=== PATIENT | female | born 1970 | race Caucasian/White ===

== ENCOUNTER 2017-02-26 07:58 | Emergency (ER) | payer MEDICAID ==
[~2017-02-26] VITALS: Ht 162.6 cm; Wt 115.3 kg
[~2017-02-26 07:58] MED LIST: ACID1TAB7 PO; AZIT250T PO; AZIT250T89 PO; CEFD300C37 PO; CEFU500T PO; HYDR-3241 PO; LEVO750T26 PO; MECL-76 PO; MORP30CP12 PO; ONDA4TAB13 SL; PRED10TA PO; TRAM50TA2 PO
[2017-02-26] MEDS ORDERED: PRED10TA PO (08:33)
[2017-02-26] MEDS ORDERED: SODIUM CHLORIDE 0.9% 1,000 ML IV ONE (08:38)
[2017-02-26] MEDS ORDERED: ACETAMINOPHEN 500 MG TABLET ONE (08:54)
[2017-02-26] MEDS ORDERED: MORPHINE SULFATE 4 MG/ML, 1ML ONE (08:54)
[2017-02-26] MEDS ORDERED: ONDANSETRON 2MG/ML, 2ML ONE (08:55)
[2017-02-26] MEDS ORDERED: SODIUM CHLORIDE 0.9% 1,000ML IVBOLUS ONE (09:00)
[2017-02-26] MEDS ORDERED: ONDANSETRON 2MG/ML, 2ML IVPush ONE (09:00)
[2017-02-26] MEDS ORDERED: MORPHINE SULFATE 4 MG/ML, 1ML IVPush PRN (09:00)
[2017-02-26] MEDS ORDERED: ACETAMINOPHEN 500 MG TABLET PO ONE (09:00)
[2017-02-26 09:13] LABS: BASOPHILS # (AUTO) 0.01 x10^3/uL (0-0.1); BASOPHILS % (AUTO) 0 % (0-1); EOSINOPHILS # (AUTO) 0.15 x10^3/uL (0-0.4); EOSINOPHILS % (AUTO) 2 % (1-7); LYMPHOCYTES # (AUTO) 0.73 x10^3/uL (1-3.4); LYMPHOCYTES % (AUTO) 9 % (22-44); MD NO; MEAN CORPUSCULAR HEMOGLOBIN 30.3 pg (27.0-34.8); MEAN CORPUSCULAR HGB CONC 33.6 g/dL (32.4-35.8); MEAN PLATELET VOLUME 7.1 fL (7.4-10.4); MONOCYTES # (AUTO) 0.43 x10^3/uL (0.2-0.8); MONOCYTES % (AUTO) 5 % (2-9); NEUTROPHILS # (AUTO) 6.86 x10^3/uL (1.8-6.8); NEUTROPHILS % (AUTO) 84 % (42-75); PLATELET COUNT 346 x10^3/uL (130-400); RED BLOOD COUNT 4.49 x10^6/uL (3.82-5.3)
[2017-02-26 09:21] LABS: ALBUMIN 3.2 g/dL (3.4-5.0); ANION GAP 8 mmol/L (5-15); CALCIUM 8.2 mg/dL (8.5-10.1); CHLORIDE 102 mmol/L (98-107)
[2017-02-26 09:24] LABS: ALANINE AMINOTRANSFERASE 28 U/L (12-78); ALKALINE PHOSPHATASE 89 U/L (45-117); BILIRUBIN,TOTAL 0.7 mg/dL (0.2-1.0); CREATININE 0.78 mg/dL (0.55-1.02)
[2017-02-26 10:01] LABS: MICROSCOPIC AUTO
[2017-02-26 10:06] LABS: CULTURE INDICATED? NO
[2017-02-26] MEDS ORDERED: OMNIPAQUE 350 MG/ML, 100ML BOTTLE ONE (11:16)
[2017-02-26 11:26] VITALS: BP 126/64
== END 2017-02-26 13:18 | disposition home or self-care (01) ==
LOC: ED 09:27
DX: M54.6 Pain in thoracic spine (principal); R50.9 Fever, unspecified; R11.10 Vomiting, unspecified; R10.9 Unspecified abdominal pain; M06.9 Rheumatoid arthritis, unspecified; I10 Essential (primary) hypertension; I25.2 Old myocardial infarction; Z87.891 Personal history of nicotine dependence
CPT/HCPCS: 36415; 71045; 74177; 80053; 81001; 83605; 83690; 84145; 85025; 87040; 93005; 96361; 96374; 96375; 99285; J2405; J7030; Q9967

== ENCOUNTER 2017-06-04 08:17 | Emergency (ER) | payer SELFPAY ==
[~2017-06-04] VITALS: Ht 162.6 cm; Wt 116.7 kg
[2017-06-04 08:18] VITALS: BP 155/87
[2017-06-04] MEDS ORDERED: OXYcodone/APAP 5/325MG TABLET ONE (08:47)
[2017-06-04] MEDS ORDERED: KETOROLAC 30 MG/1 ML ONE (08:47)
[2017-06-04] MEDS ORDERED: OXYcodone/APAP 5/325MG TABLET PO ONE (09:00)
[2017-06-04] MEDS ORDERED: KETOROLAC 30 MG/1 ML IM ONE (09:00)
== END 2017-06-04 09:33 | disposition home or self-care (01) ==
LOC: ED 09:00
DX: M25.561 Pain in right knee (principal); M06.9 Rheumatoid arthritis, unspecified; G89.29 Other chronic pain; I10 Essential (primary) hypertension
CPT/HCPCS: 96372; 99283; J1885

== ENCOUNTER 2018-03-15 11:42 | Inpatient (IN) | payer OTHER ==
[~2018-03-15] VITALS: Ht 162.6 cm; Wt 106.7 kg
[2018-03-15] MEDS ORDERED: IBUP-1623 PO (12:21)
[2018-03-15] MEDS ORDERED: HYDR-3240 PO (12:21)
--- NOTE | 2018-03-15 13:12 | NUR ---
ADDITIONAL ORDERS ADDED AT THIS TIME, PATIENT ON DELIVERY ARCHITECT PER ERP ORDER. AWAITING LABS.
--- NOTE | 2018-03-15 13:13 | NUR ---
VS UPDATED IN CHART, PATIENT TEARFUL, SITTING IN JUSTICE PERSAUD.
[2018-03-15] MEDS ORDERED: ASPIRIN 81 MG TABLET CHEW ONE (13:16)
--- NOTE | 2018-03-15 13:20 | NUR ---
EKG COMPLETED BY EMT.
[2018-03-15] MEDS ORDERED: ASPIRIN 81 MG TABLET CHEW PO ONE (13:30)
[2018-03-15 13:42] LABS: BASOPHILS # (AUTO) 0.04 x10^3/uL (0-0.1); BASOPHILS % (AUTO) 0 % (0-1); EOSINOPHILS # (AUTO) 0.09 x10^3/uL (0-0.4); EOSINOPHILS % (AUTO) 1 % (1-7); LYMPHOCYTES # (AUTO) 1.33 x10^3/uL (1-3.4); LYMPHOCYTES % (AUTO) 8 % (22-44); MD NO; MEAN CORPUSCULAR HEMOGLOBIN 30.2 pg (27.0-34.8); MEAN CORPUSCULAR HGB CONC 33.8 g/dL (32.4-35.8); MEAN CORPUSCULAR VOLUME 89.3 fL (80-100); MEAN PLATELET VOLUME 7.3 fL (7.4-10.4); MONOCYTES # (AUTO) 0.59 x10^3/uL (0.2-0.8); MONOCYTES % (AUTO) 4 % (2-9); NEUTROPHILS % (AUTO) 87 % (42-75); PLATELET COUNT 305 x10^3/uL (130-400); RED BLOOD COUNT 4.36 x10^6/uL (3.82-5.3); RED CELL DISTRIBUTION WIDTH 14.5 % (9.6-15.2)
[2018-03-15 13:45] LABS: ALBUMIN 2.9 g/dL (3.4-5.0); ANION GAP 9 mmol/L (5-15); CALCIUM 8.8 mg/dL (8.5-10.1); CHLORIDE 108 mmol/L (98-107); CREATININE 0.69 mg/dL (0.55-1.02)
[2018-03-15 13:49] LABS: TROPONIN I 0.035 ng/mL (0.000-0.045)
--- NOTE | 2018-03-15 14:13 | NUR ---
RESULTS BACK, CHART UP FOR RECHECK.
--- NOTE | 2018-03-15 14:31 | NUR ---
PER MD FLORIN TO SEE PATIENT TO DETERMINE IF PATIENT IS TO BE ADMITTED OR DC'D.
--- NOTE | 2018-03-15 14:34 | NUR ---
MD AT BEDSIDE, PATIENT TO BE ADMIT. AWAITING ORDER. PATIENT SITTING IN COMFORTABLY IN JUSTICE PERSAUD.
--- NOTE | 2018-03-15 15:10 | NUR ---
REPORT TO MARISOL SINGH RN. NEW ORDERS FOR BLOOD CULTURES AND ABX, LAB TO DRAW BLOOD CULTURES PRIOR TO ABX.
[2018-03-15] MEDS ORDERED: CEFTRIAXONE PMX 1GM/50ML 50 ML ONE (15:12)
--- NOTE | 2018-03-15 15:14 | NUR ---
TASK RN - LAB TO BEDSIDE FOR BC X 2. WILL HANG ABX AFTER.
[2018-03-15] MEDS ORDERED: AZITHROMYCIN 500 MG in SODIUM CHLORIDE 0.9% 250 ML IVPB ONE (15:30)
[2018-03-15] MEDS ORDERED: CEFTRIAXONE PMX 1GM/50ML 50 ML IVPB ONE (15:30)
[2018-03-15] MEDS ORDERED: SODIUM CHLORIDE FLUSH 10ML SYR IVF PRN (16:00)
--- NOTE | 2018-03-15 16:03 | NUR ---
1ST ABX COMPLETED, 2ND ABX ADMINISTERED. ADMIT ORDER IN, AWAITING BED ASSIGNMENT. PATIENT SITTING COMFORTABLY ON GURNEY PLAYING ON CELL PHONE.
--- NOTE | 2018-03-15 16:26 | NUR ---
LEVEL OF CARE CHANGED FROM MED/SURG TO MED/TELE, THROUGHPUT AWARE. VS UPDATED IN CHART, NADN. NO ADDITIONAL NEEDS AT THIS TIME.
[2018-03-15] MEDS ORDERED: ONDANSETRON ODT 4 MG PO PRN (16:30)
[2018-03-15] MEDS ORDERED: DOCUSATE 100 MG CAPSULE PO PRN (16:30)
[2018-03-15] MEDS ORDERED: BISACODYL 10 MG SUPP PR PRN (16:30)
[2018-03-15] MEDS ORDERED: ENALAPRILAT 1.25 MG/ML, 2ML IVPush PRN (16:30)
[2018-03-15] MEDS ORDERED: HYDROcodone/APAP 5/325 TABLET PO PRN (16:30)
[2018-03-15] MEDS ORDERED: ONDANSETRON 2MG/ML, 2ML IVPush PRN (16:30)
[2018-03-15] MEDS ORDERED: LABETALOL 5MG/ML, 20ML IVPush PRN (16:30)
[2018-03-15] MEDS ORDERED: ACETAMINOPHEN 325 MG TABLET PO PRN (16:30)
[2018-03-15] MEDS ORDERED: POLYETHYLENE GLYCOL 17 GM PACKET PO PRN (16:30)
--- NOTE | 2018-03-15 17:11 | NUR ---
REPORT TO MAC DAVENPORT. PATIENT TRANSFERRED/ADMITTED TO HOSPITAL BED UPSTAIRS, NADN.
[2018-03-15 17:18] LABS: TROPONIN I 0.037 ng/mL (0.000-0.045)
[2018-03-15 17:21] VITALS: BP 106/72
[2018-03-15] MEDS ORDERED: SODIUM CHLORIDE 0.9% 1,000 ML IV SCH (17:24)
[2018-03-15] MEDS: ENOXAPARIN 40 MG/0.4 ML SQ SCH (17:54)
[2018-03-15] MEDS: GUAIFENESIN/DM 200-20MG, 10ML UDC PO SCH (17:55)
[2018-03-15 18:36] VITALS: BP 113/72
[2018-03-15 19:43] LABS: TROPONIN I 0.041 ng/mL (0.000-0.045)
[2018-03-16] MEDS: GUAIFENESIN/DM 200-20MG, 10ML UDC PO SCH ×4 (00:06→18:16)
[2018-03-16 01:37] VITALS: BP 138/84
[2018-03-16 04:51] LABS: RAPID INFLUENZA A Negative (Negative)
[2018-03-16 04:53] LABS: RAPID INFLUENZA B POSITIVE (Negative)
[2018-03-16 05:44] LABS: ANION GAP 8 mmol/L (5-15); CALCIUM 8.1 mg/dL (8.5-10.1); CHLORIDE 110 mmol/L (98-107); CREATININE 0.69 mg/dL (0.55-1.02)
[2018-03-16 06:13] LABS: BASOPHILS # (AUTO) 0.01 x10^3/uL (0-0.1); BASOPHILS % (AUTO) 0 % (0-1); EOSINOPHILS # (AUTO) 0.17 x10^3/uL (0-0.4); EOSINOPHILS % (AUTO) 2 % (1-7); LYMPHOCYTES # (AUTO) 1.33 x10^3/uL (1-3.4); LYMPHOCYTES % (AUTO) 16 % (22-44); MD NO; MEAN CORPUSCULAR HEMOGLOBIN 30.5 pg (27.0-34.8); MEAN CORPUSCULAR HGB CONC 33.7 g/dL (32.4-35.8); MEAN CORPUSCULAR VOLUME 90.4 fL (80-100); MEAN PLATELET VOLUME 7.5 fL (7.4-10.4); MONOCYTES # (AUTO) 0.57 x10^3/uL (0.2-0.8); MONOCYTES % (AUTO) 7 % (2-9); NEUTROPHILS # (AUTO) 6.36 x10^3/uL (1.8-6.8); NEUTROPHILS % (AUTO) 75 % (42-75); PLATELET COUNT 283 x10^3/uL (130-400); RED BLOOD COUNT 3.91 x10^6/uL (3.82-5.3); RED CELL DISTRIBUTION WIDTH 14.6 % (9.6-15.2)
[2018-03-16 07:40] VITALS: BP 132/79
[2018-03-16 14:41] VITALS: BP 134/81
[2018-03-16] MEDS ORDERED: CEFTRIAXONE PMX 1GM/50ML 50 ML IV SCH (15:00)
[2018-03-16] MEDS ORDERED: AZITHROMYCIN 500 MG in SODIUM CHLORIDE 0.9% 250 ML IV SCH (16:00)
[2018-03-16] MEDS: ENOXAPARIN 40 MG/0.4 ML SQ SCH (18:16)
[2018-03-16 20:07] VITALS: BP 142/79
[2018-03-17 00:43] VITALS: BP 125/77
[2018-03-17] MEDS: GUAIFENESIN/DM 200-20MG, 10ML UDC PO SCH ×3 (00:48→13:18)
[2018-03-17 06:38] VITALS: BP 146/78
[2018-03-17 08:15] LABS: BASOPHILS # (AUTO) 0.02 x10^3/uL (0-0.1); BASOPHILS % (AUTO) 0 % (0-1); EOSINOPHILS # (AUTO) 0.18 x10^3/uL (0-0.4); EOSINOPHILS % (AUTO) 3 % (1-7); LYMPHOCYTES # (AUTO) 1.43 x10^3/uL (1-3.4); LYMPHOCYTES % (AUTO) 23 % (22-44); MD NO; MEAN CORPUSCULAR HEMOGLOBIN 29.4 pg (27.0-34.8); MEAN CORPUSCULAR HGB CONC 32.7 g/dL (32.4-35.8); MEAN PLATELET VOLUME 6.5 fL (7.4-10.4); MONOCYTES # (AUTO) 0.54 x10^3/uL (0.2-0.8); MONOCYTES % (AUTO) 9 % (2-9); NEUTROPHILS # (AUTO) 4.08 x10^3/uL (1.8-6.8); NEUTROPHILS % (AUTO) 65 % (42-75); PLATELET COUNT 383 x10^3/uL (130-400); RED BLOOD COUNT 4.15 x10^6/uL (3.82-5.3); RED CELL DISTRIBUTION WIDTH 14.4 % (9.6-15.2)
[2018-03-17 08:23] LABS: ALANINE AMINOTRANSFERASE 29 U/L (12-78); ALBUMIN 2.3 g/dL (3.4-5.0); ANION GAP 8 mmol/L (5-15); CALCIUM 8.1 mg/dL (8.5-10.1); CHLORIDE 108 mmol/L (98-107); CREATININE 0.55 mg/dL (0.55-1.02)
[2018-03-17 08:28] LABS: ALKALINE PHOSPHATASE 76 U/L (45-117); BILIRUBIN,TOTAL 0.5 mg/dL (0.2-1.0); TOTAL PROTEIN 6.5 g/dL (6.4-8.2); TROPONIN I 0.042 ng/mL (0.000-0.045)
[2018-03-17] MEDS: OSELTAMIVIR 75 MG CAPSULE PO SCH ×2 (08:45→08:46)
[2018-03-17] MEDS ORDERED: POTASSIUM CHLORIDE 20 MEQ TAB.ER.PRT PO ONE ×2 (09:00→11:00)
[2018-03-17] MEDS: SODIUM CHLORIDE 0.9% 500 ML IV SCH ×2 (09:10→13:00)
[2018-03-17] MEDS ORDERED: DOXY100T PO (12:07)
[2018-03-17] MEDS ORDERED: OSEL75CA PO (12:07)
[2018-03-17] MEDS ORDERED: CEFD300C37 PO (12:07)
[2018-03-17] MEDS ORDERED: GUAI400T66 PO (12:09)
[2018-03-17 12:57] VITALS: BP 140/82
[2018-03-17] MEDS ORDERED: CEFTRIAXONE PMX 1GM/50ML 50 ML IV SCH (13:00)
[2018-03-17] MEDS ORDERED: AZITHROMYCIN 500 MG TABLET PO ONE (13:00)
== END 2018-03-17 16:41 | disposition home or self-care (01) | DRG 194 ==
LOC: ED 12:40 → EDIP 15:46 → 5SO 17:17
PROVIDERS: ADMIT Hospitalist; ATTEND Hospitalist
DX: J15.9 Unspecified bacterial pneumonia (principal); I20.0 Unstable angina; Z68.41 Body mass index [BMI] 40.0-44.9, adult; J10.08 Influenza due to other identified influenza virus with other specified pneumonia; E66.9 Obesity, unspecified; F32.9 Major depressive disorder, single episode, unspecified; F41.9 Anxiety disorder, unspecified; I10 Essential (primary) hypertension; M05.50 Rheumatoid polyneuropathy with rheumatoid arthritis of unspecified site; M06.9 Rheumatoid arthritis, unspecified; M19.90 Unspecified osteoarthritis, unspecified site; Z79.52 Long term (current) use of systemic steroids; Z79.899 Other long term (current) drug therapy; I25.2 Old myocardial infarction; Z87.891 Personal history of nicotine dependence; Z98.51 Tubal ligation status
CPT/HCPCS: 36415; 71046; 80048; 80053; 82040; 83605; 83735; 83880; 84100; 84145; 84484; 85025; 87040; 87070; 87205; 87400; 93005; 96365; 99285; G0378; J0456; J0696; J1650; Q0162; J7030; J7040; J7050; J7512

== ENCOUNTER 2018-06-13 05:21 | Emergency (ER) | payer SELFPAY ==
[~2018-06-13] VITALS: Ht 162.6 cm; Wt 113.0 kg
[~2018-06-13 05:21] MED LIST changes: +DOXY100T PO; +GUAI400T66 PO; +HYDR-3240 PO; +IBUP-1623 PO; +OSEL75CA PO
[2018-06-13] MEDS ORDERED: KETOROLAC 30 MG/1 ML ONE (05:53)
[2018-06-13] MEDS ORDERED: KETOROLAC 30 MG/1 ML IM ONE (06:00)
--- NOTE | 2018-06-13 06:56 | NUR ---
REPORT TO FLORINDA WATTS
[2018-06-13 07:07] VITALS: BP 143/59
--- NOTE | 2018-06-13 07:07 | NUR ---
All results back. Pt rates pain R knee 8/10 s/p toradol.
--- NOTE | 2018-06-13 07:51 | NUR ---
Patient given discharge instructions and they have confirmed that they understand the instructions. Patient ambulatory with steady gait.
== END 2018-06-13 07:52 | disposition home or self-care (01) ==
LOC: ED 07:30
DX: M06.861 Other specified rheumatoid arthritis, right knee (principal); G89.29 Other chronic pain; I10 Essential (primary) hypertension
CPT/HCPCS: 73564; 93971; 96372; 99284; J1885

== ENCOUNTER 2019-06-28 16:29 | Emergency (ER) | payer OTHER ==
[~2019-06-28] VITALS: Ht 162.6 cm; Wt 111.2 kg
[~2019-06-28 16:29] MED LIST changes: -GUAI400T66 PO; +GUAI400T81 PO; -OSEL75CA PO; +OSEL75CA26 PO
[2019-06-28 16:31] VITALS: BP 123/64
--- NOTE | 2019-06-28 18:15 | NUR ---
PT HERE WITH C/O THROAT SWELLING X4 DAYS, DENIES PAIN, DENIES ALLERGIES, PT WITH PATENT AIRWAY, NO DIFFICULTY BREATHING. NO COUGH, NO FEVER
[2019-06-28] MEDS ORDERED: DEXAMETHASONE 4 MG TABLET ONE (18:39)
--- NOTE | 2019-06-28 18:41 | NUR ---
PT MEDICATED PER APR, AWAITING DC
[2019-06-28] MEDS ORDERED: DEXAMETHASONE 4 MG TABLET PO ONE (19:00)
== END 2019-06-28 19:11 | disposition home or self-care (01) ==
LOC: ED 18:30
DX: J02.8 Acute pharyngitis due to other specified organisms (principal); Z20.828 Contact with and (suspected) exposure to other viral communicable diseases; B97.89 Other viral agents as the cause of diseases classified elsewhere; I10 Essential (primary) hypertension
CPT/HCPCS: 99283; U0001

== ENCOUNTER → 2020-04-17 | Outpatient (CLI) | payer OTHER ==
[~2020-04-17] MED LIST changes: +HYDR-1067 PO; -HYDR-3240 PO
== END | disposition home or self-care (01) ==
LOC: CFH 11:03
PROVIDERS: ATTEND Family Medicine
DX: M85.80 Other specified disorders of bone density and structure, unspecified site (principal); N95.9 Unspecified menopausal and perimenopausal disorder; Z79.52 Long term (current) use of systemic steroids
CPT/HCPCS: 77080

== ENCOUNTER 2020-04-26 15:13 | Emergency (ER) | payer OTHER ==
[~2020-04-26] VITALS: Ht 162.6 cm; Wt 114.5 kg
--- NOTE | 2020-04-26 15:42 | NUR ---
Pt reports hx of reheumatoid arthritis, diagnosed at age 36. Reports she takes 10mg prednisone 3x/day and 5mg norco as needed. States these meds usually help but in the last 6months her pain and symptoms have gone from "2 to 100" gotten much more severe. Pt works as caseworker here and is tearful in expressing her frustration with her condition and fear of not being able to work here, also tearful as she explains how she felt scared the other day holding her 8month old grandbaby and fearing she would drop him d/t pain in her right arm and shoulder. PA at bedside, RN at bedside.
[2020-04-26] MEDS ORDERED: KETOROLAC 30 MG/1 ML ONE (15:59)
[2020-04-26] MEDS ORDERED: ACETAMINOPHEN 500 MG TABLET PO ONE (16:00)
[2020-04-26] MEDS ORDERED: ACETAMINOPHEN 500 MG TABLET ONE (16:00)
[2020-04-26] MEDS ORDERED: KETOROLAC 30 MG/1 ML IM ONE (16:00)
--- NOTE | 2020-04-26 16:11 | NUR ---
Medicated per eMAR.
--- NOTE | 2020-04-26 16:48 | NUR ---
Pt back from XR.
--- NOTE | 2020-04-26 17:06 | NUR ---
Dr. George at bedside.
[2020-04-26] MEDS ORDERED: SODIUM CHLORIDE FLUSH 10ML SYR IVF ONE (17:30)
[2020-04-26] MEDS ORDERED: methylPREDNISolone SOD SUCC 125 MG/2 ML IVPush ONE (17:30)
[2020-04-26] MEDS ORDERED: methylPREDNISolone SOD SUCC 125 MG/2 ML ONE (18:05)
[2020-04-26 18:14] VITALS: BP 152/71
--- NOTE | 2020-04-26 18:24 | NUR ---
Medicated per eMAR. Pt reports she is feeling better and agrees with and understands discharge plan and instructions.
== END 2020-04-26 18:44 | disposition home or self-care (01) ==
LOC: ED 17:13
DX: M17.0 Bilateral primary osteoarthritis of knee (principal); I10 Essential (primary) hypertension; I25.2 Old myocardial infarction; M06.9 Rheumatoid arthritis, unspecified; Z98.51 Tubal ligation status
CPT/HCPCS: 73564; 96372; 96374; 99284; J1885; J2930

== ENCOUNTER 2020-04-28 22:06 | Emergency (ER) | payer OTHER ==
[~2020-04-28] VITALS: Ht 162.6 cm; Wt 118.6 kg
--- NOTE | 2020-04-28 22:57 | NUR ---
No orders for pt, waiting for further from ERP. Pt in NAD.
[2020-04-28] MEDS ORDERED: KETOROLAC 60 MG/2 ML ONE (23:19)
[2020-04-28] MEDS ORDERED: HYDROmorphone 1 MG/ML, 1ML INJ ONE (23:19)
[2020-04-28] MEDS ORDERED: KETOROLAC 60 MG/2 ML IM ONE (23:30)
[2020-04-28] MEDS ORDERED: HYDROmorphone 1 MG/ML, 1ML INJ IM ONE (23:30)
--- NOTE | 2020-04-28 23:30 | NUR ---
Medicated per order, pt resting, to have splint to wrist. Pt tearful due to pain. Works here in [employer].
--- NOTE | 2020-04-28 23:51 | NUR ---
Wrist splint applied, pt reports decrease in pain since injections.
[2020-04-29 00:12] VITALS: BP 148/89
== END 2020-04-29 00:30 | disposition home or self-care (01) ==
LOC: ED 22:38
DX: M06.842 Other specified rheumatoid arthritis, left hand (principal); R00.0 Tachycardia, unspecified; I10 Essential (primary) hypertension
CPT/HCPCS: 29125; 96372; 99284; J1170; J1885; J7512

== ENCOUNTER 2020-07-15 13:34 | Emergency (ER) | payer OTHER ==
[~2020-07-15] VITALS: Ht 162.6 cm; Wt 118.0 kg
[~2020-07-15 13:34] MED LIST changes: -HYDR-1067 PO; +HYDR-2214 PO
[2020-07-15] MEDS ORDERED: KETOROLAC 30 MG/1 ML ONE (14:15)
[2020-07-15] MEDS ORDERED: ASPIRIN 81 MG TABLET CHEW ONE (14:16)
[2020-07-15] MEDS ORDERED: KETOROLAC 30 MG/1 ML IM ONE (14:30)
[2020-07-15] MEDS ORDERED: ASPIRIN 81 MG TABLET CHEW PO ONE (14:30)
[2020-07-15 14:38] LABS: BASOPHILS % (AUTO) 1 % (0-1); EOSINOPHILS % (AUTO) 4 % (1-7); LYMPHOCYTES % (AUTO) 11 % (22-44); MEAN CORPUSCULAR HEMOGLOBIN 29.4 pg (27.0-34.8); MEAN CORPUSCULAR HGB CONC 32.5 g/dL (32.4-35.8); MEAN PLATELET VOLUME 6.8 fL (7.4-10.4); MONOCYTES % (AUTO) 6 % (2-9); NEUTROPHILS % (AUTO) 79 % (42-75); PLATELET COUNT 381 x10^3/uL (130-400); RED BLOOD COUNT 3.93 x10^6/uL (3.82-5.3)
[2020-07-15 14:39] LABS: MD NO
[2020-07-15 14:46] LABS: ALBUMIN 3.1 g/dL (3.4-5.0); ANION GAP 4 mmol/L (5-15); CALCIUM 8.5 mg/dL (8.5-10.1); CHLORIDE 107 mmol/L (98-107)
[2020-07-15 14:51] LABS: CREATININE 0.58 mg/dL (0.55-1.02)
[2020-07-15 14:52] LABS: ALANINE AMINOTRANSFERASE 33 U/L (12-78); ALKALINE PHOSPHATASE 93 U/L (45-117); BILIRUBIN,TOTAL 0.5 mg/dL (0.2-1.0); TOTAL PROTEIN 6.5 g/dL (6.4-8.2); TROPONIN I < 0.015 ng/mL (0.000-0.045)
[2020-07-15 15:15] VITALS: BP 151/47
== END 2020-07-15 15:35 | disposition home or self-care (01) ==
LOC: ED 14:14
DX: M79.602 Pain in left arm (principal)
CPT/HCPCS: 36415; 71045; 80053; 84484; 85025; 93005; 96372; 99285; J1885

== ENCOUNTER → 2020-07-25 | Outpatient (CLI) | payer OTHER ==
[~2020-07-25] MED LIST changes: +ALPR0.5T7 PO; +CALC-534 PO; +CHOL10003 PO; +METH-640 PO; +PROP20TA PO; +TRAZ50TA66 PO
[2020-07-25 16:34] LABS: ANION GAP 3 mmol/L (5-15); CALCIUM 8.7 mg/dL (8.5-10.1); CHLORIDE 106 mmol/L (98-107); CREATININE 0.69 mg/dL (0.55-1.02)
[2020-07-25 16:36] LABS: BASOPHILS % (AUTO) 0 % (0-1); EOSINOPHILS % (AUTO) 0 % (1-7); LYMPHOCYTES % (AUTO) 8 % (22-44); MEAN CORPUSCULAR HEMOGLOBIN 30.1 pg (27.0-34.8); MEAN CORPUSCULAR HGB CONC 33.3 g/dL (32.4-35.8); MEAN PLATELET VOLUME 6.8 fL (7.4-10.4); MONOCYTES % (AUTO) 5 % (2-9); NEUTROPHILS % (AUTO) 86 % (42-75); PLATELET COUNT 402 x10^3/uL (130-400); RED BLOOD COUNT 4.21 x10^6/uL (3.82-5.3); RED CELL DISTRIBUTION WIDTH 13.8 % (9.6-15.2)
[2020-07-25 17:10] LABS: MD SCAN
== END | disposition home or self-care (01) ==
LOC: STAR 14:57
PROVIDERS: ATTEND Orthopaedic Surgery
DX: Z01.812 Encounter for preprocedural laboratory examination (principal); Z20.822 Contact with and (suspected) exposure to COVID-19; M17.11 Unilateral primary osteoarthritis, right knee
CPT/HCPCS: 36415; 80048; 85025; 87081; U0003; U0005

== ENCOUNTER 2020-07-30 10:27 | Observation (INO) | payer OTHER ==
[~2020-07-30] VITALS: Ht 162.6 cm; Wt 114.6 kg
[2020-07-30] MEDS ORDERED: CHLORHEXIDINE 15 ML UDC PO ONE (11:00)
[2020-07-30] MEDS ORDERED: TRANEXAMIC ACID 100 MG/ML, 10ML ONE (11:07)
[2020-07-30] MEDS ORDERED: ROPIvacaine/PF 0.2%, 20 ML ONE (11:07)
[2020-07-30] MEDS ORDERED: SODIUM CHLORIDE 0.9% 50 ML ONE (11:07)
[2020-07-30] MEDS ORDERED: KETOROLAC 60 MG/2 ML ONE (11:07)
[2020-07-30] MEDS ORDERED: VANCOMYCIN 1,000 MG ONE (11:07)
[2020-07-30] MEDS ORDERED: EPINEPHRINE 1 MG/ML, 1ML ONE (11:07)
[2020-07-30] MEDS: LACTATED RINGERS 1,000 ML IV SCH ×2 (11:16→21:24)
[2020-07-30] MEDS ORDERED: SCOPOLAMINE 1MG PATCH TD SCH (11:30)
[2020-07-30] MEDS ORDERED: MIDAZOLAM 1 MG/ML, 2ML ONE (11:57)
[2020-07-30] MEDS ORDERED: FENTANYL PF 250 MCG/5ML ONE (11:57)
[2020-07-30] MEDS ORDERED: DEXAMETHASONE 4 MG/ML, 1ML ONE ×2 (13:53)
[2020-07-30] MEDS ORDERED: ONDANSETRON 2MG/ML, 2ML ONE (13:53)
[2020-07-30] MEDS ORDERED: PROPOFOL 10 MG/ML, 20ML ONE (13:53)
[2020-07-30] MEDS ORDERED: LIDOCAINE-MPF 2% ,5ML ONE (13:54)
[2020-07-30] MEDS ORDERED: CEFAZOLIN 1,000 MG ONE ×2 (13:54)
[2020-07-30] MEDS ORDERED: ROPIvacaine/PF 0.5%, 30 ML ONE (13:54)
[2020-07-30] MEDS ORDERED: FENTANYL PF 100 MCG/2ML ONE ×3 (13:58→15:12)
[2020-07-30] MEDS ORDERED: ONDANSETRON 2MG/ML, 2ML IVPush PRN (14:30)
[2020-07-30] MEDS ORDERED: PROMETHAZINE 25 MG/ML, 1ML IVPush PRN (14:30)
[2020-07-30] MEDS ORDERED: OXYcodone 5 MG/5 ML ORAL.SOL UDC PO PRN (14:30)
[2020-07-30] MEDS ORDERED: HYDROmorphone 1 MG/ML, 1ML INJ IVPush PRN (14:30)
[2020-07-30] MEDS ORDERED: DIPHENHYDRAMINE 50 MG/ML, 1ML IVPush PRN (14:30)
[2020-07-30] MEDS ORDERED: ACETAMINOPHEN 325 MG TABLET PO PRN (14:30)
[2020-07-30] MEDS ORDERED: DIAZEPAM 5 MG/ML, 2ML IVPush PRN (14:30)
[2020-07-30] MEDS ORDERED: hydrALAzine 20 MG/ML, 1ML IV PRN (14:30)
[2020-07-30] MEDS ORDERED: MEPERIDINE/PF 25MG/0.5ML IVPush PRN (14:30)
[2020-07-30] MEDS: FENTANYL PF 100 MCG/2ML IV PRN ×4 (14:50→15:23)
[2020-07-30] MEDS ORDERED: ACETAMINOPHEN 650 MG/20.3 ML UDC ONE (15:02)
[2020-07-30] MEDS ORDERED: OXYcodone 5 MG/5 ML ORAL.SOL UDC ONE (15:02)
[2020-07-30] MEDS ORDERED: LABETALOL 5MG/ML, 20ML ONE (15:24)
[2020-07-30] MEDS: LABETALOL 5MG/ML, 20ML IV PRN ×2 (15:25→15:42)
[2020-07-30] MEDS ORDERED: MAGNESIUM HYDROXIDE 8%, 30ML UDC PO PRN (15:30)
[2020-07-30] MEDS ORDERED: ALUMINUM/MAG/SIMETHICONE 30 ML UDC PO PRN (15:30)
[2020-07-30] MEDS ORDERED: ONDANSETRON 2MG/ML, 2ML IV PRN (15:30)
[2020-07-30] MEDS ORDERED: ONDANSETRON 4 MG TABLET PO PRN (15:30)
[2020-07-30] MEDS ORDERED: BISACODYL 10 MG SUPP PR PRN (15:30)
[2020-07-30] MEDS ORDERED: SENNA/DOCUSATE TABLET PO PRN (15:30)
[2020-07-30] MEDS ORDERED: MORPHINE SULFATE 4 MG/ML, 1ML IVPush PRN (15:30)
[2020-07-30] MEDS ORDERED: MEPERIDINE/PF 25MG/ML,1ML ONE (15:45)
[2020-07-30 16:25] VITALS: BP 136/80
[2020-07-30] MEDS: KETOROLAC 30 MG/1 ML IV SCH (17:49)
[2020-07-30 20:06] VITALS: BP 145/68
[2020-07-30] MEDS: SODIUM CHLORIDE FLUSH 3ML SYRINGE IVF SCH (21:00)
[2020-07-30] MEDS: ACETAMINOPHEN 500 MG TABLET PO SCH (21:31)
[2020-07-30] MEDS: OXYcodone IR 5MG TABLET PO PRN (21:31)
[2020-07-30] MEDS: CEFAZOLIN PMX 1GM/50ML 50 ML IVPB SCH (21:31)
[2020-07-31 00:13] VITALS: BP 128/69
[2020-07-31] MEDS: OXYcodone IR 5MG TABLET PO PRN ×3 (02:04→11:45)
[2020-07-31] MEDS: ACETAMINOPHEN 500 MG TABLET PO SCH ×2 (02:04→09:27)
[2020-07-31] MEDS: KETOROLAC 30 MG/1 ML IV SCH ×2 (02:05→09:27)
[2020-07-31 04:21] VITALS: BP 133/83
[2020-07-31] MEDS ORDERED: ASPIRIN 81 MG TABLET EC PO SCH ×2 (06:00→18:00)
[2020-07-31] MEDS: CEFAZOLIN PMX 1GM/50ML 50 ML IVPB SCH (06:06)
[2020-07-31] MEDS ORDERED: PROP20TA PO (08:52)
[2020-07-31] MEDS ORDERED: ACET-1600 PO (08:52)
[2020-07-31] MEDS ORDERED: ASPI81TA45 PO ×2 (08:52)
[2020-07-31] MEDS ORDERED: OXYC5TAB98 PO (08:52)
[2020-07-31] MEDS ORDERED: CELE200C PO (08:52)
[2020-07-31] MEDS ORDERED: SENN-211 PO (08:52)
[2020-07-31 08:54] VITALS: BP 128/79
[2020-07-31] MEDS ORDERED: PROPRANOLOL 20 MG TABLET PO SCH (09:00)
[2020-07-31] MEDS: SODIUM CHLORIDE FLUSH 3ML SYRINGE IVF SCH (09:27)
[2020-07-31] MEDS ORDERED: DIPHENHYDRAMINE 12.5MG/5ML, 10ML UDC PO PRN (10:00)
[2020-07-31] MEDS ORDERED: DIPHENHYDRAMINE 12.5MG/5ML, 10ML UDC ONE ×2 (10:13→10:15)
== END 2020-07-31 13:05 | disposition home or self-care (01) ==
LOC: OUT 10:27 → 4NE 15:29 → OUT 15:29 → 4NE 16:34 → DCLOUNGE 07-31 12:55
PROVIDERS: ADMIT Orthopaedic Surgery; ATTEND Orthopaedic Surgery
DX: M17.0 Bilateral primary osteoarthritis of knee (principal); I10 Essential (primary) hypertension; E66.01 Morbid (severe) obesity due to excess calories; Z79.899 Other long term (current) drug therapy
CPT/HCPCS: 27447; 36415; 85014; 85018; 96365; 96366; 96375; 96376; 97162; 97166; C1713; C1776; G0378; J0171; J0690; J1100; J1885; J2175; J2250; J2270; J2405; J2704; J2795; J3010; J3490; J7120; J3370

== ENCOUNTER 2020-09-24 13:08 | Emergency (ER) | payer OTHER ==
[~2020-09-24] VITALS: Ht 162.6 cm; Wt 105.0 kg
[~2020-09-24 13:08] MED LIST changes: +ACET-1600 PO; +ASPI81TA45 PO; +CELE200C PO; +OXYC5TAB98 PO; +SENN-211 PO
[2020-09-24 13:10] VITALS: BP 162/76
--- NOTE | 2020-09-24 13:29 | NUR ---
FIRST CONTACT: "I HAVE RA, 2 MONTHS AGO I HAD RIGHT KNEE REPLACEMENT. IT IS DOING GREAT, BUT THEY TOOK ME OFF PREDNISONE. RIGHT ELBOW/SHOULDER SWELLING. CANT SEE BUYING INTERN UNTIL THE " GENERALIZED PAIN HAD MODERNA VACCINE PT TO BED WITH STEADY GAIT WITH USE OF CANE. ATTACHED TO MONITORS. VSS. DR. MCQUEEN TO BEDSIDE FOR EVALUATION
[2020-09-24] MEDS ORDERED: HYDROcodone/APAP 5/325 TABLET ONE (13:38)
--- NOTE | 2020-09-24 13:53 | NUR ---
Patient given discharge instructions and they have confirmed that they understand the instructions. Patient ambulatory with steady gait. NAD, all questions answered appropriately, denies additional needs at this time. No personal belongings left in room after discharge.
[2020-09-24] MEDS ORDERED: HYDROcodone/APAP 5/325 TABLET PO ONE (14:00)
== END 2020-09-24 13:54 | disposition home or self-care (01) ==
LOC: ED 13:48
DX: M06.811 Other specified rheumatoid arthritis, right shoulder (principal); M06.821 Other specified rheumatoid arthritis, right elbow; M06.861 Other specified rheumatoid arthritis, right knee; I10 Essential (primary) hypertension
CPT/HCPCS: 99283; J7512

== ENCOUNTER → 2020-10-06 | Outpatient (CLI) | payer OTHER ==
[2020-10-06 14:34] LABS: BASOPHILS % (AUTO) 0 % (0-1); EOSINOPHILS % (AUTO) 0 % (1-7); LYMPHOCYTES % (AUTO) 10 % (22-44); MEAN CORPUSCULAR HEMOGLOBIN 25.8 pg (27.0-34.8); MEAN CORPUSCULAR HGB CONC 31.5 g/dL (32.4-35.8); MEAN PLATELET VOLUME 6.6 fL (7.4-10.4); MONOCYTES % (AUTO) 5 % (2-9); NEUTROPHILS % (AUTO) 85 % (42-75); PLATELET COUNT 547 x10^3/uL (130-400); RED BLOOD COUNT 4.37 x10^6/uL (3.82-5.3); RED CELL DISTRIBUTION WIDTH 16.1 % (9.6-15.2)
[2020-10-06 14:41] LABS: ALANINE AMINOTRANSFERASE 27 U/L (12-78); ALBUMIN 3.3 g/dL (3.4-5.0); CREATININE 0.57 mg/dL (0.55-1.02)
[2020-10-06 15:15] LABS: HCT (SEDRATE) 35.8 % (34.6-47.8)
== END | disposition home or self-care (01) ==
LOC: LAB 13:58
PROVIDERS: ATTEND Internal Medicine
DX: M05.79 Rheumatoid arthritis with rheumatoid factor of multiple sites without organ or systems involvement (principal); M15.0 Primary generalized (osteo)arthritis; Z79.899 Other long term (current) drug therapy
CPT/HCPCS: 36415; 82040; 82565; 84450; 84460; 85025; 85651; 86480; 86704; 86706; 86803; 87340

== ENCOUNTER 2020-10-28 13:24 | Emergency (ER) | payer OTHER ==
[~2020-10-28] VITALS: Ht 157.5 cm; Wt 108.0 kg
[2020-10-28 15:10] LABS: BASOPHILS % (AUTO) 1 % (0-1); EOSINOPHILS % (AUTO) 3 % (1-7); LYMPHOCYTES % (AUTO) 15 % (22-44); MEAN CORPUSCULAR HEMOGLOBIN 26.3 pg (27.0-34.8); MEAN CORPUSCULAR HGB CONC 31.8 g/dL (32.4-35.8); MEAN PLATELET VOLUME 6.2 fL (7.4-10.4); MONOCYTES % (AUTO) 6 % (2-9); NEUTROPHILS % (AUTO) 76 % (42-75); PLATELET COUNT 469 x10^3/uL (130-400); RED BLOOD COUNT 3.88 x10^6/uL (3.82-5.3); RED CELL DISTRIBUTION WIDTH 17.5 % (9.6-15.2)
[2020-10-28 15:20] LABS: ALBUMIN 2.8 g/dL (3.4-5.0); ANION GAP 4 mmol/L (5-15); CALCIUM 8.2 mg/dL (8.5-10.1); CHLORIDE 105 mmol/L (98-107)
[2020-10-28 16:54] VITALS: BP 150/78
[2020-10-28 16:55] LABS: HCT (SEDRATE) 32.1 % (34.6-47.8)
--- NOTE | 2020-10-28 17:03 | NUR ---
PT HAS HX RA. FLARE UP X10 DAYS BC OFF PREDNISONE BC WAITING FOR INSURANCE TO OK HER NEW RX. PAIN IN LOWER LEGS AND HIPS. AWAITING LAB RESULTS AND DISPO.
--- NOTE | 2020-10-28 18:00 | NUR ---
pt educated on dc instructions, verbalized understanding. ambulatory to dc desk with use of personal cane, steady gait.
== END 2020-10-28 18:03 | disposition home or self-care (01) ==
LOC: ED 14:00
DX: M06.842 Other specified rheumatoid arthritis, left hand (principal); M06.841 Other specified rheumatoid arthritis, right hand; M06.862 Other specified rheumatoid arthritis, left knee; I10 Essential (primary) hypertension; Z87.891 Personal history of nicotine dependence
CPT/HCPCS: 36415; 80048; 82040; 85025; 85651; 86140; 99284

== ENCOUNTER 2020-11-10 16:54 | Outpatient (CLI) | payer OTHER ==
[2020-11-10 17:43] LABS: BASOPHILS % (AUTO) 0 % (0-1); EOSINOPHILS % (AUTO) 0 % (1-7); LYMPHOCYTES % (AUTO) 11 % (22-44); MEAN CORPUSCULAR HEMOGLOBIN 26.6 pg (27.0-34.8); MEAN CORPUSCULAR HGB CONC 32.6 g/dL (32.4-35.8); MEAN PLATELET VOLUME 6.4 fL (7.4-10.4); MONOCYTES % (AUTO) 5 % (2-9); NEUTROPHILS % (AUTO) 83 % (42-75); PLATELET COUNT 582 x10^3/uL (130-400); RED BLOOD COUNT 3.81 x10^6/uL (3.82-5.3); RED CELL DISTRIBUTION WIDTH 17.8 % (9.6-15.2)
[2020-11-10 17:44] LABS: HCT (SEDRATE) 31.2 % (34.6-47.8)
== END 2020-11-10 23:59 | disposition home or self-care (01) ==
LOC: LAB 16:54
PROVIDERS: ATTEND Orthopaedic Surgery
DX: G89.18 Other acute postprocedural pain (principal)
CPT/HCPCS: 36415; 85025; 85651; 86140